=== PATIENT | female | born 1980 | race Caucasian/White ===

== ENCOUNTER 2018-08-24 16:17 | Emergency (ER) | payer OTHER ==
[~2018-08-24] VITALS: Ht 175.3 cm; Wt 91.6 kg
[2018-08-24 16:44] VITALS: BP 126/69; Ht 175.3 cm; Wt 91.6 kg
== END 2018-08-24 19:05 | disposition home or self-care (01) ==
LOC: ED 16:17
DX: S93.602A Unspecified sprain of left foot, initial encounter (principal); X50.1XXA Overexertion from prolonged static or awkward postures, initial encounter; Y93.89 Activity, other specified; Y92.89 Other specified places as the place of occurrence of the external cause; Y99.8 Other external cause status
CPT/HCPCS: Q0092